=== PATIENT | male | born 1990 | race Caucasian/White ===

== ENCOUNTER 2020-02-20 14:39 | Inpatient (IN) | payer BC, SELFPAY ==
[2020-02-20] VITALS (10 sets, daily range): BP systolic 166–207; BP diastolic 113–128; PULSE 89–107; RESP 11–21; TEMP 36.6; O2SAT 95–99; BMI 19.1
[2020-02-20] MEDS: ONDANSETRON 4 MG/2 ML INJ IV (15:38)
[2020-02-20] MEDS: SODIUM CHLORIDE 0.9% 1,000 ML 1000 ML IV (15:38)
[2020-02-20 15:39] LABS: Add Manual Diff / Slide Review NO; Basophils Absolute Auto 100 /uL (0-100); Basophils Percent Auto 0.8 % (0-2); Eosinophils Absolute Auto 400 /uL (0-450); Eosinophils Percent Auto 5.6 % (2-4); Hematocrit 28.4 % (41-53); Hemoglobin 9.5 g/dL (13.5-17.5); Lymphocytes Absolute Auto 1600 /uL (1100-4500); Lymphocytes Percent Auto 23.6 % (25-40); Mean Corpuscular HGB Conc 33.6 % (30-36); Mean Corpuscular Hemoglobin 27.6 PG (26-34); Mean Corpuscular Volume 82.1 fL (80-100); Monocytes Absolute Auto 400 /uL (0-900); Neutrophils Absolute Auto 4300 /uL (1500-7000); Platelet Count 283 X10^3/uL (150-400); Red Blood Cell Count 3.45 X10^6/uL (4.5-5.9); White Blood Cell Count 6.7 X10^3/uL (4.5-11.0)
[2020-02-20 15:51] LABS: Alanine Aminotransferase 33 IU/L (<50); Albumin 3.3 g/dL (3.5-5.0); Albumin Globulin Ratio 1.3 (1.0-2.8); Alkaline Phosphatase 83 U/L (38-126); Aspartate Aminotransferase 41 IU/L (17-59); Bilirubin Total 0.6 mg/dL (0.2-1.3); Blood Urea Nitrogen 32 mg/dL (9-20); Calcium 8.3 mg/dL (8.4-10.2); Carbon Dioxide 26 mmol/L (22-32); Chloride 110 mmol/L (98-107); Estimated Glomerular Filt Rate 42.3 mL/min (>60); Globulin 2.6 g/dL (1.7-4.1); Glucose 103 mg/dL (70-100); HEMOLYSIS < 15 (0-50); Lipase 60 U/L (23-300); Potassium 4.3 mmol/L (3.4-5.1); Sodium 137 mmol/L (137-145); Total Protein 5.9 g/dL (6.3-8.2)
[2020-02-20 15:55] LABS: Appearance Urine UA CLEAR; Bacteria Urine None Seen; Bilirubin Urine UA NEGATIVE (NEGATIVE); Color Urine UA YELLOW; Glucose Urine UA 1+ g/dL (Negative); Ketones Urine UA NEGATIVE (NEGATIVE); Leukocyte Esterase Urine UA NEGATIVE (NEGATIVE); Nitrite Urine UA NEGATIVE (Negative); Occult Blood Urine UA 3+ (Negative); Protein Urine UA 3+ (Negative); Specific Gravity Urine UA 1.025 (1.000-1.035); Urobilinogen Urine UA 0.2 E.U./dL (0.2); pH Urine UA 5.5 (4.5-8.0)
[2020-02-20 16:03] LABS: Amorphous Sediment Urine 1+; Culture Indicated Urine Cult Not Indicated; Hyaline Casts Urine 1-5/LPF; RBC Urine 5-10/HPF (0-5/HPF); Squamous Epithelial Cell Urine 0-1 /HPF (0-5/HPF); WBC Urine 0-1/HPF (0-5/HPF)
--- NOTE | 2020-02-20 16:54 | ED_ITS ---
HPI - Nausea/Vomiting/Diarrhea <Tory Briscoe PA-C - Last Filed: 02/21/20 22:35> General Chief complaint: Nausea/Vomiting/Diarrhea Stated complaint: vomiting,diarrhea, nausea Time Seen by Provider: 02/20/20 15:17 Source: patient Mode of arrival: Ambulatory Limitations: no limitations History of Present Illness HPI Narrative: There year old with history of hyperkalemia, neurogenic bladder, neuropathy of feet, type 1 diabetes-controlled with insulin pump, presents to the emergency department complaining of nausea and vomiting since Monday, 5 days ago and diarrhea that began last night. He has had a reduced ability to take oral food over this time he did eat yesterday some homemade chicken soup today he has only been able to keep down crackers and a small amount of tony tea. He was actually feeling pretty good yesterday however yesterday evening he started feeling bad again and started having diarrhea, he has been having diarrhea this morning as well 5-6 episodes today he has vomited about 3 times today. He has some abdominal discomfort but notes he is not sure how well he is able to identify pain in his belly due to his neuropathy. He endorses chronic issues with his GI system notes that before Covid he was referred to have a ?double scope however this did not happened yet. He also notes that he has been on a special elimination diet recently and he is just starting to come off of this, he thinks he had ?an allergic reaction to something I ate on Monday because Monday evening he noted that his lower legs were swollen in his ankles and this worsened and went up to almost his knees. He does remember having this problem before but it has always been very mild and early this week it was very severe, it is still definitely worse than his usual, he did take Benadryl every day for the last 3 days. 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 In the last 2 weeks his left eye has begun giving him trouble, with blurry vision in both eyes and dark spots in his vision that appear and then blew mental larger spots. He also notes that his glucometer has been reading higher at times he has seen some spikes over the last 4 days while he has been having symptoms that last a little longer than usual, up to 250 once. Normally his blood sugar is very well controlled with the pump. He has been assessed for his neurogenic bladder and states that usually when he pees he has about 200 or 300 remaining ?I have a very big bladder?. Patient notes he ?always has a fast heart rate?. He used to take blood pressure medicine, took lisinopril this spring but ended up being hospitalized for hyperkalemia after 3 days of therapy, tried amlodipine for over a month but it did absolutely nothing to reduce his blood pressure and he stopped taking early this summer. He denies any chest pain, flank pain, dysuria, headache, sore throat, dizziness, medication changes or any other symptoms. MD complaint: nausea, vomiting, diarrhea, abdominal pain and other (Lower extr emity edema) Onset (ago): day(s) (4) Description of Vomiting: watery Description of Diarrhea: watery Associated Abdominal Pain: Yes (Mild) Location of pain: diffuse and RLQ Severity scale (1-10): 2 Quality: cramping and aching Pain Consistency: constant Relieving factors: none Exacerbating factors: none Associated symptoms: nausea/vomiting and other (Lower extremity swelling) Related Data Home Medications Medication Instructions Recorded Confirmed insulin aspart U-100 [Novolog 1 unit CONTINUOUS IV INFUSION CONT 02/21/20 02/21/20 U-100 Insulin aspart] Previous Rx's Medication Instructions Recorded amlodipine 5 mg PO DAILY #30 tab 02/23/20 atorvastatin 10 mg PO BEDTIME #30 tab 02/23/20 losartan 25 mg PO BID #30 tab 02/23/20 Allergies Allergy/AdvReac Type Severity Reaction Status Date / Time Sulfa (Sulfonamide Allergy Verified 02/20/20 14:53 Antibiotics) Review of Systems <Tory Briscoe PA-C - Last Filed: 02/21/20 22:35> Review of Systems Narrative: GENERAL: Denies chills, fatigue, malaise, fever, sweats. HEENT: Denies sinus pain, ear pain, sore throat, difficulty swallowing, dizziness, positive for intermittent blurry vision vision, tiny dark spots in hi s vision that ?newsome? new in his left eye over the last 2 weeks, worsening in both eyes over the last 2 weeks. RESPIRATORY: Denies dyspnea, cough, wheezing, hemoptysis, sputum. CARDIOVASCULAR: Denies chest pain, palpitations, orthopnea, positive for lower extremity edema since Monday, GASTROINTESTINAL: Positive for nausea, vomiting, abdominal pain, diarrhea, negative for constipation, melena. : Denies dysuria, frequency, incontinence, hematuria, urinary retention. MUSCULOSKELETAL: denies weakness, joint pain, or bony pain SKIN: Denies rash, skin lesions, or other NEUROLOGIC: Denies weakness, headache, numbness, change in speech, confusion, seizures, incoordination, positive for neurogenic bladder, neuropathy of his feet. PSYCHIATRIC: No concerning psychosocial issues. 12 point review of systems is negative except for those stated above Patient History <Tory Briscoe PA-C - Last Filed: 02/21/20 22:35> Medical History (Updated 02/21/20 @ 04:32 by LAVAREZ Davis) Hypertension (Acute) Nephropathy (Acute) Neuropathy (Acute) Retinopathy (Acute) Type 1 diabetes mellitus (Acute) Surgical History (Updated 02/21/20 @ 04:32 by ALVAREZ aDvis) No history of previous surgery (Acute) Social History household members: family Smoking Status: Never smoker Smoking Status: Never smoker alcohol intake frequency: holidays/special occasions only Substance Use Type: does not use Exam <Tory Briscoe PA-C - Last Filed: 02/21/20 22:35> Narrative Exam Narrative: GENERAL: 29 year old patient appears stated age. Well-nourished, well-developed patient, in mild distress. HEAD: Atraumatic. Normocephalic. EYES: Pupils equal round and poorly reactive. Extraocular motions intact. No scleral icterus. No injection or drainage. Funduscopic exam reveals multiple bilateral flame hemorrhages ENT: Nose without bleeding, purulent drainage. Throat without erythema, tonsillar hypertrophy or exudate. Airway patent. NECK: Trachea midline. Non tender CARDIOVASCULAR: Regular rate and rhythm without murmurs, gallops, or rubs. RESPIRATORY: Clear to auscultation. Breath sounds equal bilaterally. No wheezes, rales, or rhonchi. GASTROINTESTINAL: Insulin pump port present on the left lower abdomen, 2nd port present on the right lower abdomen. Abdomen soft, there is moderate tenderness over the right lower quadrant in the area of McBurney's point, there is also slight tenderness in the left lower quadrant, nondistended. EXTREMITIES: There is bilateral edema of the feet ankles and extending up to the mid heredia, 1+ pitting edema, no joint tenderness. Bilaterally on the lateral ball of the foot there is small callus present approximately 1 cm in size more notable on the right, sensation in the feet is reduced bilaterally. BACK: Nontender without deformity or crepitance. No flank tenderness. NEURO: AOx3. SKIN: No rash or erythema of visible areas Initial Vital Signs Initial Vital Signs: Vital Signs Temperature 97.8 F 02/20/20 14:53 Pulse Rate 107 H 02/20/20 14:53 Respiratory Rate 19 02/20/20 14:53 Blood Pressure 166/113 H 02/20/20 14:53 Pulse Oximetry 99 02/20/20 14:53 <Khanh Russ MD - Last Filed: 02/24/20 13:33> Initial Vital Signs Initial Vital Signs: Vital Signs Temperature 97.8 F 02/20/20 14:53 Pulse Rate 107 H 02/20/20 14:53 Respiratory Rate 19 02/20/20 14:53 Blood Pressure 166/113 H 02/20/20 14:53 Pulse Oximetry 99 02/20/20 14:53 Scores <Tory Briscoe PA-C - Last Filed: 02/21/20 22:35> GCS [place] coma scale eye opening: Spontaneous [place] coma scale verbal response: Orientated [place] coma scale motor response: Obey commands [place] coma scale total score: 15 Course <Tory Briscoe PA-C - Last Filed: 02/21/20 22:35> Course Course Narrative: Given the patient's neurogenic bladder, I do not know to what degree he is able to identify pain that is different or new in his abdomen, he does have right lower quadrant tenderness in association of nausea vomiting and diarrhea, did elect to do CT scan. Patient did have an elevated BNP, combined with the lower extremity edema pitting this is consistent with likely CHF exacerbation, discussed this with the attending physician and we did initiate a low-dose of Lasix as the patient has neurogenic bladder, tendency to retain fluid in his bladder. CT scan did not show the entire appendix, unable to definitively rule out appendicitis, there was trace free fluid in the pelvis and exam is read as possibly secondary to generalized inflammatory process such as gastroenteritis. Also note on his labs that his H&H is low, not critically. He also has blood in his urine but no other evidence of a urinary tract infection. 18:52 Discussed this patient with ED attending Dr. Mahajan and planned to have him work with his primary care to get his blood pressure better controlled, and sent him out on Lasix for his lower extremity edema. I have fairly low suspicion that his nausea vomiting and diarrhea has been caused by appendicitis given that multiple normal appearing segments of the appendix were seen and his GI symptoms have not worsened at all in the emergency department today, exam is also nonspecific for appendicitis, however his probable CHF is concerning. His kidney function is also notably poor. He is notably well controlled comparati vely in terms of his diabetes at this time compared to his previous poor control reportedly. 20:28 Discussed in detail the different problems going on with the patient and the plan to discharge him, during our discussion he brought up the fact that he has eye issues and these began in October he was evaluated for them and was supposed to be getting injections but has not been able to afford them due to not currently being employed and not having insurance. He reports that in the last 2 weeks his left eye began having eye issues as well and his vision has been worsening over the last 2 weeks with increasing blurry vision of both eyes, he frequently has small pinpoint dark spots in his vision that ?newsome?. Did perform a funduscopic exam and he does have flame hemorrhages present. Discussed this patient with new attending Dr. Russ and given that he is currently having end-organ damage and this is new and worsening in the last few weeks in the setting of poorly controlled blood pressure we do feel it is appropriate to transfer him to a facility that has Ophthalmology and Nephrology as well as cardiology so that he can be further evaluated and his blood pressure can be controlled, he may also warrant a echo given his probable CHF. 21:46 Still waiting to hear back from the hospitalist at [facility] for possible transfer. Updated the patient. He is doing well, ate some food and has some additional water still feeling okay without nausea. 22:50 [facility] no longer has a bed available. [address] does not have any beds available. Trying [facility] [address] Patino at [facility] who stated that there is no hadoop java developer available there and he feels the patient would be better served at a facility where he can be in the ICU and have accessed Ophthalmology. We are contacting [facility]. I have given report and handing off the patient to Dr. king occur remains on shift in the emergency department. 12:24 Spoke with Trinity Morgan RN at [facility] and gave report regarding this patient, the advised that when the physician called back they will likely be seeking with Dr. Russ--care handed off to Dr. Russ 12:38 Orders Ordered: Discontinued Medications Acetaminophen (Tylenol) 650 mg PO Q6HR PRN PRN Reason: Fever/Mild Pain (1-3) Last Admin: 02/22/20 00:23 Dose: 650 mg Documented by: MARIA LUZ Admin: 02/21/20 16:26 Dose: 650 mg Documented by: CATRACHO Enoxaparin Sodium (Lovenox) 40 mg SUBCUT DAILY [facility] Last Admin: 02/23/20 09:04 Dose: 40 mg Documented by: Admin: 02/22/20 09:39 Dose: 40 mg Documented by: Admin: 02/21/20 08:50 Dose: 40 mg Documented by: QUINCY Furosemide (Lasix) 20 mg IV NOW ONE Stop: 02/20/20 17:46 Last Admin: 02/20/20 17:49 Dose: 20 mg Documented by: MAURICIO Hydralazine HCl (Apresoline) 10 mg IV Q6HR PRN PRN Reason: Hypertension Last Admin: 02/22/20 06:10 Dose: 10 mg Documented by: MARIA LUZ Admin: 02/21/20 19:31 Dose: 10 mg Documented by: CATRACHO Sodium Chloride (Normal Saline 0.9%) 1,000 mls @ 1,000 mls/hr IV BOLUS ONE Stop: 02/20/20 16:21 Last Infusion: 02/20/20 16:51 Dose: 1,000 mls/hr Documented by: Admin: 02/20/20 15:38 Dose: 1,000 mls/hr Documented by: MAURICIO Lactated Ringer's (Lactated Ringers) 1,000 mls @ 50 mls/hr IV CONT JENNIE Last Admin: 02/22/20 19:54 Dose: 50 mls/hr Documented by: Infusion: 02/22/20 19:54 Dose: 50 mls/hr Documented by: Admin: 02/22/20 00:34 Dose: 50 mls/hr Documented by: MARIA LUZ Infusion: 02/22/20 00:33 Dose: 50 mls/hr Documented by: MARIA LUZ Admin: 02/21/20 04:33 Dose: 50 mls/hr Documented by: JUAN MIGUEL Insulin Aspart (Novolog) 1 unit SUBCUT CONT ONE Stop: 02/21/20 04:14 Last Admin: 02/21/20 04:32 Dose: Not Given Documented by: JUAN MIGUEL Labetalol HCl (Trandate) 10 mg IV NOW ONE Stop: 02/21/20 02:19 Last Admin: 02/21/20 02:27 Dose: 10 mg Documented by: MOAPO Labetalol HCl (Trandate) 10 mg IV Q4HR PRN PRN Reason: Hypertension Last Admin: 02/23/20 05:53 Dose: 10 mg Documented by: MARIA LUZ Admin: 02/21/20 17:18 Dose: 10 mg Documented by: Admin: 02/21/20 13:31 Dose: 10 mg Documented by: Admin: 02/21/20 06:22 Dose: 10 mg Documented by: JUAN MIGUEL Losartan Potassium (Cozaar) 25 mg PO NOW ONE Stop: 02/21/20 04:51 Last Admin: 02/21/20 05:07 Dose: 25 mg Documented by: JUAN MIGUEL Losartan Potassium (Cozaar) 25 mg PO BID [facility] Last Admin: 02/23/20 09:03 Dose: 25 mg Documented by: Admin: 02/22/20 21:17 Dose: 25 mg Documented by: Admin: 02/22/20 09:39 Dose: 25 mg Documented by: MELANIA Metoclopramide HCl (Reglan) 10 mg IV Q6HR PRN PRN Reason: Nausea And Vomiting Last Admin: 02/22/20 19:54 Dose: 10 mg Documented by: Admin: 02/22/20 11:38 Dose: 10 mg Documented by: MELANIA Naloxone HCl (Narcan) 0.2 mg IV Q2MIN PRN PRN Reason: Opiate Reversal Nitroglycerin (Nitro-Bid) 1 inch TOP NOW ONE Stop: 02/21/20 02:10 Last Admin: 02/21/20 02:12 Dose: 1 inch Documented by: MADELEINE Ondansetron HCl (Zofran) 4 mg IV NOW ONE Stop: 02/20/20 15:23 Last Admin: 02/20/20 15:38 Dose: 4 mg Documented by: MAURICIO Ondansetron HCl (Zofran) 4 mg IV Q6HR PRN PRN Reason: Nausea And Vomiting Last Admin: 02/22/20 06:11 Dose: 4 mg Documented by: MARIA LUZ Admin: 02/22/20 00:34 Dose: 4 mg Documented by: MARIA LUZ Admin: 02/21/20 16:26 Dose: 4 mg Documented by: CATRACHO Oxycodone HCl (Percolone) 5 mg PO Q4HR PRN PRN Reason: Pain, Moderate (4-6) Pantoprazole Sodium (Protonix) 40 mg IV DAILY JENNIE Last Admin: 02/22/20 09:39 Dose: 40 mg Documented by: Admin: 02/21/20 08:50 Dose: 40 mg Documented by: QUINCY Vital Signs Vital signs: Vital Signs - 8 hr 02/20/20 19:12 02/20/20 19:13 02/20/20 21:40 Pulse Rate 100 H Respiratory Rate 21 Blood Pressure 187/126 H 187/126 H Pulse Oximetry 02/20/20 21:41 02/20/20 22:00 02/20/20 22:30 Pulse Rate 101 H 89 95 H Respiratory Rate 11 L 17 Blood Pressure 166/114 H 197/124 H 200/128 H Pulse Oximetry 99 99 02/20/20 23:00 02/20/20 23:30 02/21/20 00:00 Pulse Rate 91 H 90 94 H Respiratory Rate 17 17 13 Blood Pressure 189/128 H 177/118 H 181/121 H Pulse Oximetry 95 98 99 02/21/20 00:30 02/21/20 01:00 02/21/20 01:30 Pulse Rate 91 H 87 90 Respiratory Rate 15 14 15 Blood Pressure 182/116 H 172/110 H 173/116 H Pulse Oximetry 99 99 99 02/21/20 02:12 Pulse Rate 86 Respiratory Rate Blood Pressure 174/115 H Pulse Oximetry <Khanh Brennick, MD - Last Filed: 02/24/20 13:33> Course Course Narrative: Time 2:07 a.m.. Spoke with the Sydnee mendez hospitalist. At this time unable to receive patient. I have spoken with Other hospitals local ER boarding or have no beds. Including [facility]. [facility]. [facility]. [facility] also no beds Orders Ordered: Discontinued Medications Acetaminophen (Tylenol) 650 mg PO Q6HR PRN PRN Reason: Fever/Mild Pain (1-3) Last Admin: 02/22/20 00:23 Dose: 650 mg Documented by: MARIA LUZ Admin: 02/21/20 16:26 Dose: 650 mg Documented by: CATRACHO Enoxaparin Sodium (Lovenox) 40 mg SUBCUT DAILY JENNIE Last Admin: 02/23/20 09:04 Dose: 40 mg Documented by: Admin: 02/22/20 09:39 Dose: 40 mg Documented by: Admin: 02/21/20 08:50 Dose: 40 mg Documented by: QUINCY Furosemide (Lasix) 20 mg IV NOW ONE Stop: 02/20/20 17:46 Last Admin: 02/20/20 17:49 Dose: 20 mg Documented by: MAURICIO Hydralazine HCl (Apresoline) 10 mg IV Q6HR PRN PRN Reason: Hypertension Last Admin: 02/22/20 06:10 Dose: 10 mg Documented by: MARIA LUZ Admin: 02/21/20 19:31 Dose: 10 mg Documented by: CATRACHO Sodium Chloride (Normal Saline 0.9%) 1,000 mls @ 1,000 mls/hr IV BOLUS ONE Stop: 02/20/20 16:21 Last Infusion: 02/20/20 16:51 Dose: 1,000 mls/hr Documented by: Admin: 02/20/20 15:38 Dose: 1,000 mls/hr Documented by: MAURICIO Lactated Ringer's (Lactated Ringers) 1,000 mls @ 50 mls/hr IV CONT JENNIE Last Admin: 02/22/20 19:54 Dose: 50 mls/hr Documented by: Infusion: 02/22/20 19:54 Dose: 50 mls/hr Documented by: Admin: 02/22/20 00:34 Dose: 50 mls/hr Documented by: MARIA LUZ Infusion: 02/22/20 00:33 Dose: 50 mls/hr Documented by: MARIA LUZ Admin: 02/21/20 04:33 Dose: 50 mls/hr Documented by: JUAN MIGUEL Insulin Aspart (Novolog) 1 unit SUBCUT CONT ONE Stop: 02/21/20 04:14 Last Admin: 02/21/20 04:32 Dose: Not Given Documented by: JUAN MIGUEL Labetalol HCl (Trandate) 10 mg IV NOW ONE Stop: 02/21/20 02:19 Last Admin: 02/21/20 02:27 Dose: 10 mg Documented by: TRIPP Labetalol HCl (Trandate) 10 mg IV Q4HR PRN PRN Reason: Hypertension Last Admin: 02/23/20 05:53 Dose: 10 mg Documented by: MARIA LUZ Admin: 02/21/20 17:18 Dose: 10 mg Documented by: Admin: 02/21/20 13:31 Dose: 10 mg Documented by: Admin: 02/21/20 06:22 Dose: 10 mg Documented by: JUAN MIGUEL Losartan Potassium (Cozaar) 25 mg PO NOW ONE Stop: 02/21/20 04:51 Last Admin: 02/21/20 05:07 Dose: 25 mg Documented by: JUAN MIGUEL Losartan Potassium (Cozaar) 25 mg PO BID JENNIE Last Admin: 02/23/20 09:03 Dose: 25 mg Documented by: Admin: 02/22/20 21:17 Dose: 25 mg Documented by: Admin: 02/22/20 09:39 Dose: 25 mg Documented by: MELANIA Metoclopramide HCl (Reglan) 10 mg IV Q6HR PRN PRN Reason: Nausea And Vomiting Last Admin: 02/22/20 19:54 Dose: 10 mg Documented by: Admin: 02/22/20 11:38 Dose: 10 mg Documented by: MELANIA Naloxone HCl (Narcan) 0.2 mg IV Q2MIN PRN PRN Reason: Opiate Reversal Nitroglycerin (Nitro-Bid) 1 inch TOP NOW ONE Stop: 02/21/20 02:10 Last Admin: 02/21/20 02:12 Dose: 1 inch Documented by: MADELEINE Ondansetron HCl (Zofran) 4 mg IV NOW ONE Stop: 02/20/20 15:23 Last Admin: 02/20/20 15:38 Dose: 4 mg Documented by: MAURICIO Ondansetron HCl (Zofran) 4 mg IV Q6HR PRN PRN Reason: Nausea And Vomiting Last Admin: 02/22/20 06:11 Dose: 4 mg Documented by: MARIA LUZ Admin: 02/22/20 00:34 Dose: 4 mg Documented by: MARIA LUZ Admin: 02/21/20 16:26 Dose: 4 mg Documented by: CATRACHO Oxycodone HCl (Percolone) 5 mg PO Q4HR PRN PRN Reason: Pain, Moderate (4-6) Pantoprazole Sodium (Protonix) 40 mg IV DAILY JENNIE Last Admin: 02/22/20 09:39 Dose: 40 mg Documented by: Admin: 02/21/20 08:50 Dose: 40 mg Documented by: QUINCY Reevaluation(s) Reevaluation #1: Patient resting comfortably no distress Time: 02:19 Consultations Consultation #1: Spoke with hospitalistHowie, will admit. Instructed to give labetalol 10 mg IV here now. Time: 02:19 Vital Signs Vital signs: Vital Signs - 8 hr 02/20/20 19:12 02/20/20 19:13 02/20/20 21:40 Pulse Rate 100 H Respiratory Rate 21 Blood Pressure 187/126 H 187/126 H Pulse Oximetry 02/20/20 21:41 02/20/20 22:00 02/20/20 22:30 Pulse Rate 101 H 89 95 H Respiratory Rate 11 L 17 Blood Pressure 166/114 H 197/124 H 200/128 H Pulse Oximetry 99 99 02/20/20 23:00 02/20/20 23:30 02/21/20 00:00 Pulse Rate 91 H 90 94 H Respiratory Rate 17 17 13 Blood Pressure 189/128 H 177/118 H 181/121 H Pulse Oximetry 95 98 99 02/21/20 00:30 02/21/20 01:00 02/21/20 01:30 Pulse Rate 91 H 87 90 Respiratory Rate 15 14 15 Blood Pressure 182/116 H 172/110 H 173/116 H Pulse Oximetry 99 99 99 02/21/20 02:12 Pulse Rate 86 Respiratory Rate Blood Pressure 174/115 H Pulse Oximetry MDM - Nausea/Vomiting/Diarrhea <Tory Briscoe PA-C - Last Filed: 02/21/20 22:35> Differential Diagnosis Differential diagnosis: Likely gastroenteritis and other (hypertensive urgency, hypertensive emergency, CHF, LE edema, retinopathy, nephropathy, appendicitis) Medical Records Attestation: I reviewed the patient's medical records. Lab Data Attestation: I reviewed the patient's lab results. Result diagrams: 02/23/20 05:25 02/23/20 05:25 Labs: Lab Results 02/20/20 02/20/20 02/20/20 Range/Units 15:34 15:34 15:42 WBC 6.7 (4.5-11.0) X10^3/uL RBC 3.45 L (4.5-5.9) X10^6/uL Hgb 9.5 L (13.5-17.5) g/dL Hct 28.4 L (41-53) % MCV 82.1 (80-100) fL MCH 27.6 (26-34) PG MCHC 33.6 (30-36) % RDW 14.0 (11.6-14.8) % Plt Count 283 (150-400) X10^3/uL Neut % (Auto) 64.0 (50-75) % Lymph % (Auto) 23.6 L (25-40) % [place] % (Auto) 6.0 (3-14) % Eos % (Auto) 5.6 H (2-4) % Baso % (Auto) 0.8 (0-2) % Neut # (Auto) 4300 (2565-3554) /uL Lymph # (Auto) 1600 (8369-4419) /uL [place] # (Auto) 400 (0-900) /uL Eos # (Auto) 400 (0-450) /uL Baso # (Auto) 100 (0-100) /uL Sodium 137 (137-145) mmol/L Potassium 4.3 (3.4-5.1) mmol/L Chloride 110 H (98-107) mmol/L Carbon Dioxide 26 (22-32) mmol/L BUN 32 H (9-20) mg/dL Creatinine 1.88 H (0.66-1.25) mg/dL Estimated GFR 42.3 L (>60) mL/min BUN/Creatinine Ratio 17.0 (6-22) Glucose 103 H (70-100) mg/dL Calcium 8.3 L (8.4-10.2) mg/dL Total Bilirubin 0.6 (0.2-1.3) mg/dL AST 41 (17-59) IU/L ALT 33 (<50) IU/L Alkaline Phosphatase 83 (38-126) U/L Total Creatine Kinase (55-170) U/L CK-MB (CK-2) (<2.37) ng/mL CK-MB (CK-2) Rel Index (1.5-5.0) % Troponin I (0.01-0.034) ng/mL NT-Pro-B Natriuret Pep (<125) pg/mL Total Protein 5.9 L (6.3-8.2) g/dL Albumin 3.3 L (3.5-5.0) g/dL Globulin 2.6 (1.7-4.1) g/dL Albumin/Globulin Ratio 1.3 (1.0-2.8) Lipase 60 (23-300) U/L Urine Color Yellow Urine Appearance Clear Urine pH 5.5 (4.5-8.0) Ur Specific [place] 1.025 (1.000-1.035) Urine Protein 3+ H (Negative) Urine Glucose (UA) 1+ H (Negative) g/dL Urine Ketones Negative (NEGATIVE) Urine Occult Blood 3+ H (Negative) Urine Nitrate Negative (Negative) Urine Bilirubin Negative (NEGATIVE) Urine Urobilinogen 0.2 (0.2) E.U./dL Ur Leukocyte Esterase Negative (NEGATIVE) Urine RBC 5-10/hpf H (0-5/HPF) Urine WBC 0-1/hpf (0-5/HPF) Ur Squamous Epith Cells 0-1 /hpf (0-5/HPF) Amorphous Sediment 1+ Urine Bacteria None seen (None) Hyaline Casts 1-5/lpf (None) Ur Culture Indicated? Cult not indicated COVID-19 PCR (Negative) 02/20/20 02/20/20 02/20/20 Range/Units 16:34 22:06 23:37 WBC (4.5-11.0) X10^3/uL RBC (4.5-5.9) X10^6/uL Hgb (13.5-17.5) g/dL Hct (41-53) % MCV (80-100) fL MCH (26-34) PG MCHC (30-36) % RDW (11.6-14.8) % Plt Count (150-400) X10^3/uL Neut % (Auto) (50-75) % Lymph % (Auto) (25-40) % [place] % (Auto) (3-14) % Eos % (Auto) (2-4) % Baso % (Auto) (0-2) % Neut # (Auto) (4244-0407) /uL Lymph # (Auto) (6980-5629) /uL [place] # (Auto) (0-900) /uL Eos # (Auto) (0-450) /uL Baso # (Auto) (0-100) /uL Sodium (137-145) mmol/L Potassium (3.4-5.1) mmol/L Chloride (98-107) mmol/L Carbon Dioxide (22-32) mmol/L BUN (9-20) mg/dL Creatinine (0.66-1.25) mg/dL Estimated GFR (>60) mL/min BUN/Creatinine Ratio (6-22) Glucose (70-100) mg/dL Calcium (8.4-10.2) mg/dL Total Bilirubin (0.2-1.3) mg/dL AST (17-59) IU/L ALT (<50) IU/L Alkaline Phosphatase (38-126) U/L Total Creatine Kinase 296 H (55-170) U/L CK-MB (CK-2) 3.87 H (<2.37) ng/mL CK-MB (CK-2) Rel Index 1.3 L (1.5-5.0) % Troponin I 0.023 (0.01-0.034) ng/mL NT-Pro-B Natriuret Pep 1010 H (<125) pg/mL Total Protein (6.3-8.2) g/dL Albumin (3.5-5.0) g/dL Globulin (1.7-4.1) g/dL Albumin/Globulin Ratio (1.0-2.8) Lipase (23-300) U/L Urine Color Urine Appearance Urine pH (4.5-8.0) Ur Specific [place] (1.000-1.035) Urine Protein (Negative) Urine Glucose (UA) (Negative) g/dL Urine Ketones (NEGATIVE) Urine Occult Blood (Negative) Urine Nitrate (Negative) Urine Bilirubin (NEGATIVE) Urine Urobilinogen (0.2) E.U./dL Ur Leukocyte Esterase (NEGATIVE) Urine RBC (0-5/HPF) Urine WBC (0-5/HPF) Ur Squamous Epith Cells (0-5/HPF) Amorphous Sediment Urine Bacteria (None) Hyaline Casts (None) Ur Culture Indicated? COVID-19 PCR Negative (Negative) Imaging Data Chest x-ray: Attestation: I personally reviewed and interpreted this imaging study as follows: Radiologist's Impression: [address] [address] XRay Report Signed Patient: Adonis Warner#: [id number] : 1990Acct:[id number] Age/Sex: 29 / MDate of Service: 02/20/20 Loc: ED Accession Number: [id number] Procedure: XR chest 1V Ordering Provider: Tory Briscoe P.A-C PROCEDURE: XR CHEST 1V INDICATIONS: suspect CHF TECHNIQUE: One view of the chest was acquired. COMPARISON: [facility] , CHEST 2 VIEW, 05/27/2012, 7:22. FINDINGS: Surgical changes and devices: None. Lungs and pleura: Lungs are clear. No radiographic evidence of pulmonary edema. No pleural effusions or pneumothorax. Mediastinum: Mediastinal contours appear normal. Heart size is normal. Bones and chest wall: No suspicious bony lesions. Overlying soft tissues appear unremarkable. IMPRESSION: 1. No acute cardiopulmonary disease. Dictated by: Martin Hall M.D. on 02/20/2020 at 17:20 Approved by: Martin Hall M.D. on 02/20/2020 at 17:21 CT scan - abdomen/pelvis: Attestation: I personally reviewed and interpreted this imaging study as follows: Radiologist's Impression: [address] [address] [address] Scan Report Signed Patient: Adonis Warner#: [id number] : 1990Acct:[id number] Age/Sex: 29 / MDate of Service: 02/20/20 Loc: ED Accession Number: [id number] Procedure: CT abdomen pelvis w con Ordering Provider: Tory Briscoe P.A-C PROCEDURE: CT ABDOMEN PELVIS W CON INDICATIONS: N/V/D RLQ abd pain TECHNIQUE: After the administration of intravenous contrast, 5 mm thick sections acquired from the diaphragm to the symphysis. 5 mm coronal and sagittal reformats were acquired. For radiation dose reduction, the following was used: automated exposure control, adjustment of mA and/or kV according to patient size. COMPARISON: None. FINDINGS: Image quality: Good, but decreased due to lack of oral contrast and full urinary bladder.. ABDOMEN: Lung bases: Lung bases are clear. Heart size is normal. Solid organs: Liver is normal in size and enhancement. Gallbladder is unremarkable . Biliary system is non dilated. Pancreas enhances normally. Spleen is normal in size and enhancement. No adrenal nodules. Kidneys demonstrate normal size and enhancement, without hydronephrosis. Peritoneum and bowel: The entire appendix is not convincingly seen, however short segments of air-filled normal caliber appendix are occasionally imaged. There is generalized haziness in the mesentery and trace amount of fluid in the pelvis. Bowel loops demonstrate normal wall thickness and caliber. No free fluid or air. Nodes and vessels: No retroperitoneal or mesenteric adenopathy by size criteria. Aorta and inferior vena cava are normal in size. Miscellaneous: No ventral hernias. PELVIS: Genitourinary: Urinary bladder is distended and the wall is mildly diffusely thickened.. Miscellaneous: No inguinal hernias or adenopathy. Bones: No suspicious bony lesions. No vertebral body compression fractures. IMPRESSION: 1. The exam is equivocal for acute appendicitis given the entire appendix cannot be identified and there is a trace amount of fluid in the pelvis. This may be secondary to a generalized inflammatory process such as gastroenteritis. Acute appendicitis cannot be excluded. 2. Mild diffuse thickening of the urinary bladder wall. Consider cystitis. Dictated by: Suzanne Ruano M.D. on 02/20/2020 at 18:12 Approved by: Suzanne Ruano M.D. on 02/20/2020 at 18:16 ECG Data Attestation: I personally reviewed and interpreted this ECG as follows: Prior ECG tracings: not available for review Interpretation: Ventricular rate 95, p.r. interval 138 QRS 84 QT 354 P axis 62 R axis 64 T axis 65 normal sinus rhythm normal appearing EKG. MDM Narrative Medical decision making narrative: 29-year-old male, insulin-dependent diabetic with chronic hypertension on insulin pump presents to the emergency department complaining of nausea vomiting diarrhea for 4 days as well as bilateral lower extremity swelling and vision changes worsening over the last 2 weeks most notab ly newly involving the left eye with blurred vision and dark spots and blooms in both eyes. Had plan to discharge the patient however information regarding his vision changes was late coming. Patient had a notably elevated blood pressure during his emergency department stay, however given his previous failure of multiple blood pressure medications, his kidney function and his previous hospitalization due to a very short course of lisinopril for severe hyperkalemia, did not elect to initiate blood pressure reduction in the emergency department, do believe his hypertension is chronic however it has recently been worsening and causing end-organ damage for him notably in his eyes, likely is also affecting his kidneys as well. Patient also has what appears to be a CHF, given his elevated BNP and bilateral lower extremity swelling. He also has anemia. Given his age and current hypertension with end- organ damage as well as his possible CHF, chest to admit this patient, work to find a facility that had ophthalmology nephrology and cardiology available. <Khanh Russ MD - Last Filed: 02/24/20 13:33> Lab Data Labs: Lab Results 02/20/20 02/20/20 02/20/20 Range/Units 15:34 15:34 15:42 WBC 6.7 (4.5-11.0) X10^3/uL RBC 3.45 L (4.5-5.9) X10^6/uL Hgb 9.5 L (13.5-17.5) g/dL Hct 28.4 L (41-53) % MCV 82.1 (80-100) fL MCH 27.6 (26-34) PG MCHC 33.6 (30-36) % RDW 14.0 (11.6-14.8) % Plt Count 283 (150-400) X10^3/uL Neut % (Auto) 64.0 (50-75) % Lymph % (Auto) 23.6 L (25-40) % [place] % (Auto) 6.0 (3-14) % Eos % (Auto) 5.6 H (2-4) % Baso % (Auto) 0.8 (0-2) % Neut # (Auto) 4300 (9074-3413) /uL Lymph # (Auto) 1600 (0942-0024) /uL [place] # (Auto) 400 (0-900) /uL Eos # (Auto) 400 (0-450) /uL Baso # (Auto) 100 (0-100) /uL Sodium 137 (137-145) mmol/L Potassium 4.3 (3.4-5.1) mmol/L Chloride 110 H (98-107) mmol/L Carbon Dioxide 26 (22-32) mmol/L BUN 32 H (9-20) mg/dL Creatinine 1.88 H (0.66-1.25) mg/dL Estimated GFR 42.3 L (>60) mL/min BUN/Creatinine Ratio 17.0 (6-22) Glucose 103 H (70-100) mg/dL Calcium 8.3 L (8.4-10.2) mg/dL Total Bilirubin 0.6 (0.2-1.3) mg/dL AST 41 (17-59) IU/L ALT 33 (<50) IU/L Alkaline Phosphatase 83 (38-126) U/L Total Creatine Kinase (55-170) U/L CK-MB (CK-2) (<2.37) ng/mL CK-MB (CK-2) Rel Index (1.5-5.0) % Troponin I (0.01-0.034) ng/mL NT-Pro-B Natriuret Pep (<125) pg/mL Total Protein 5.9 L (6.3-8.2) g/dL Albumin 3.3 L (3.5-5.0) g/dL Globulin 2.6 (1.7-4.1) g/dL Albumin/Globulin Ratio 1.3 (1.0-2.8) Lipase 60 (23-300) U/L Urine Color Yellow Urine Appearance Clear Urine pH 5.5 (4.5-8.0) Ur Specific [place] 1.025 (1.000-1.035) Urine Protein 3+ H (Negative) Urine Glucose (UA) 1+ H (Negative) g/dL Urine Ketones Negative (NEGATIVE) Urine Occult Blood 3+ H (Negative) Urine Nitrate Negative (Negative) Urine Bilirubin Negative (NEGATIVE) Urine Urobilinogen 0.2 (0.2) E.U./dL Ur Leukocyte Esterase Negative (NEGATIVE) Urine RBC 5-10/hpf H (0-5/HPF) Urine WBC 0-1/hpf (0-5/HPF) Ur Squamous Epith Cells 0-1 /hpf (0-5/HPF) Amorphous Sediment 1+ Urine Bacteria None seen (None) Hyaline Casts 1-5/lpf (None) Ur Culture Indicated? Cult not indicated COVID-19 PCR (Negative) 02/20/20 02/20/20 02/20/20 Range/Units 16:34 22:06 23:37 WBC (4.5-11.0) X10^3/uL RBC (4.5-5.9) X10^6/uL Hgb (13.5-17.5) g/dL Hct (41-53) % MCV (80-100) fL MCH (26-34) PG MCHC (30-36) % RDW (11.6-14.8) % Plt Count (150-400) X10^3/uL Neut % (Auto) (50-75) % Lymph % (Auto) (25-40) % [place] % (Auto) (3-14) % Eos % (Auto) (2-4) % Baso % (Auto) (0-2) % Neut # (Auto) (3406-6152) /uL Lymph # (Auto) (0795-6645) /uL [place] # (Auto) (0-900) /uL Eos # (Auto) (0-450) /uL Baso # (Auto) (0-100) /uL Sodium (137-145) mmol/L Potassium (3.4-5.1) mmol/L Chloride (98-107) mmol/L Carbon Dioxide (22-32) mmol/L BUN (9-20) mg/dL Creatinine (0.66-1.25) mg/dL Estimated GFR (>60) mL/min BUN/Creatinine Ratio (6-22) Glucose (70-100) mg/dL Calcium (8.4-10.2) mg/dL Total Bilirubin (0.2-1.3) mg/dL AST (17-59) IU/L ALT (<50) IU/L Alkaline Phosphatase (38-126) U/L Total Creatine Kinase 296 H (55-170) U/L CK-MB (CK-2) 3.87 H (<2.37) ng/mL CK-MB (CK-2) Rel Index 1.3 L (1.5-5.0) % Troponin I 0.023 (0.01-0.034) ng/mL NT-Pro-B Natriuret Pep 1010 H (<125) pg/mL Total Protein (6.3-8.2) g/dL Albumin (3.5-5.0) g/dL Globulin (1.7-4.1) g/dL Albumin/Globulin Ratio (1.0-2.8) Lipase (23-300) U/L Urine Color Urine Appearance Urine pH (4.5-8.0) Ur Specific [place] (1.000-1.035) Urine Protein (Negative) Urine Glucose (UA) (Negative) g/dL Urine Ketones (NEGATIVE) Urine Occult Blood (Negative) Urine Nitrate (Negative) Urine Bilirubin (NEGATIVE) Urine Urobilinogen (0.2) E.U./dL Ur Leukocyte Esterase (NEGATIVE) Urine RBC (0-5/HPF) Urine WBC (0-5/HPF) Ur Squamous Epith Cells (0-5/HPF) Amorphous Sediment Urine Bacteria (None) Hyaline Casts (None) Ur Culture Indicated? COVID-19 PCR Negative (Negative) Discharge Plan Departure Patient Disposition: Admitted as Observation Clinical Impression: Nausea vomiting and diarrhea, Bilateral edema of lower extremity, Elevated brain natriuretic peptide (BNP) level Hypertension Qualifiers: Hypertension type: unspecified Qualified Code(s): I10 - Essential (primary) hypertension Discharge Date/Time: 02/21/20 03:52 Instructions: Essential Hypertension, DI for Dehydration -- Adult, DI for High Blood Pressure, Nausea and Vomiting-Adult, Atorvastatin, Amlodipine, Losartan Additional Instructions: Thank you for letting us be part of your care in the emergency department today. The cause of your nausea vomiting and diarrhea is unclear, it is possible that you have a gastroenteritis or viral illness that has caused this, you do have some inflammation seen in your GI tract on the CT scan we did today but it is nonspecific. I have prescribed and antinausea medicine for you to help you be able to eat and drink. Your labs did show that you have anemia, it is possible that the diet you have been on recently may have influenced this I do recommend that he start taking an iron supplement or injuring that your getting plenty of protein and iron in the foods that you eat. You also had swelling of both of your lower legs, and 1 of your labs that can indicate reduced cardiac function and can cause fluid collecting your lower extremities was also elevated today, sometimes lower extremity swelling can also be caused by anemia. We gave you a medication to help your body get rid of some of this excess fluid in the emergency department but I am also prescribing this medicine for you to take as an outpatient. Because of your diabetes adding medications to her regimen can be delicate, this is white very important for you to follow-up with your primary care in the next 2 days ideally, if you are not able to get in to see her regular primary care you can go to Urgent Care, I have also included information on [facility] resources which you can call to work on accessing a new primary care provider if needed. This CT scan today showed part severe parts of your appendix but not all of your appendix, the parts that were seen were normal but because it was not fully visualized I cannot absolutely say it is not possible that you might have an early appendicitis as the cause of your nausea vomiting and diarrhea. Your blood pressure was definitely elevated in the emergency department today, I recommend that you monitor your blood pressures at home and start taking the blood pressure medication that you were previously prescribed, even if it does not lower your BP well, it will likely protect your kidneys, and I want you to talk to your primary care provider about this and work on getting you on a good medication that works well for you, is very important for people with diabetes to have a good blood pressure regimen and medication that works well to protect your kidney function. Please pay close attention to your symptoms if you do develop fevers and chills if you feel you have worsening abdominal discomfort or worsening nausea vomiting diarrhea please do not hesitate to be re-evaluated. There is no evidence of an emergent or life threatening illness at this time, but follow up with your doctor in 1-2 days is recommended nonetheless to continue to rule out serious underlying causes of your symptoms. Please call the office for an appointment. Please return to the Emergency Department for any worsening or persistent symptoms. Please take medications as directed. Referrals: [facility] [Outside] Admit Date/Time: 02/21/20 02:21 Admit Provider: Brody Hernandez
[2020-02-20 17:29] LABS: NT-proBNP (BNP-Adult 18+) 1010 pg/mL (<125)
--- NOTE | 2020-02-20 17:35 | DI.RAD.S_ITS ---
PROCEDURE: XR CHEST 1V INDICATIONS: suspect CHF TECHNIQUE: One view of the chest was acquired. COMPARISON: [facility], , CHEST 2 VIEW, 05/27/2012, 7:22. FINDINGS: Surgical changes and devices: None. Lungs and pleura: Lungs are clear. No radiographic evidence of pulmonary edema. No pleural effusions or pneumothorax. Mediastinum: Mediastinal contours appear normal. Heart size is normal. Bones and chest wall: No suspicious bony lesions. Overlying soft tissues appear unremarkable. IMPRESSION: 1. No acute cardiopulmonary disease. Dictated by: Martin Hall M.D. on 02/20/2020 at 17:20 Approved by: Martin Hall M.D. on 02/20/2020 at 17:21
[2020-02-20] MEDS: FUROSEMIDE 40 MG/4 ML VIAL 20 MG IV (17:49)
--- NOTE | 2020-02-20 22:17 | PC.NURSE ---
Pt did not bring glasses for visual acuity test
[2020-02-20 22:28] LABS: COVID19 -Nasal RAPID Negative (Negative)
[2020-02-21] VITALS (35 sets, daily range): BP systolic 110–201; BP diastolic 55–131; PULSE 82–101; RESP 12–20; TEMP 36.4–37.1; O2SAT 96–100; BMI 17.7
[2020-02-21 00:02] LABS: Creatine Kinase 296 U/L (55-170)
[2020-02-21 00:15] LABS: Troponin I 0.023 ng/mL (0.01-0.034)
[2020-02-21 00:17] LABS: CKMB % Relative Index 1.3 % (1.5-5.0); Creatine Kinase MB 3.87 ng/mL (<2.37)
[2020-02-21] MEDS: NITROGLYCERIN OINT 1 INCH/GM OINT...G. TOP (02:12)
[2020-02-21] MEDS: LABETALOL 20 MG/4 ML SYRINGE 10 MG IV ×4 (02:27→17:18)
--- NOTE | 2020-02-21 02:28 | PC.NURSE ---
nitro paste removed
--- NOTE | 2020-02-21 04:16 | PM.HP.1 ---
History of Present Illness History of Present Illness Date Patient Seen: 02/21/20 Time Patient Seen: 04:16 Chief complaint: vomiting,diarrhea, nausea Narrative: Mr. Benita Warner is a 29-year-old male with history significant for type 1 diabetes, neuropathy, retinopathy and nephropathy complications, neurogenic bladder and hypertension who presents to the emergency department for nausea vomiting and diarrhea. Patient states he has had nausea vomiting with right lower quadrant abdominal pain for 4 days that has waxed and waned improving yesterday after which he 8 and became sick again with nausea vomiting. The patient further states that he developed watery diarrhea night before last with multiple episodes of bile like watery stool today prompting him to present to the emergency department. Patient is a type 1 diabetic managed on an insulin pump for he receives his insulin from the [facility] endocrine resident clinic. Patient provides a convoluted history of recurrent episodes leg arm of facial swelling a few days ago having episode worse than ever that has since resolved. He describes visual changes for the last 2 weeks. He has previously been evaluated for neurogenic bladder and nephropathy undergoing a renal ultrasound on 09/19/2019 which shows minimal right kidney pelvocalcentesis and a normal left kidney with no evidence of hydronephrosis. The patient reports episodes of chills but denies fevers. He has had headaches city so she [place] with high blood pressure but no nasal congestion or sore throat. He denies chest pain but has had occasional palpitations. He reports no shortness of breath cough for wheezing. He has had abdominal pain, nausea, vomiting and diarrhea as noted above. Patient denies urinary symptoms and describes having a big bladder. 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 Upon arrival to the ER the patient is afebrile with a temperature 97.8?, tachycardic at 1:07 a.m. with a blood pressure 166/113 with respirations of 19 and saturation 99% on room air. While in the ER the patient had elevated blood pressure was up to 200/123. Chest x-ray finds no acute cardiopulmonary processes. He had a CT of the abdomen and pelvis is equivocal for appendicitis without full visualization, trace pelvic fluid, mild diffuse thickening of the urinary bladder. Twelve lead EKG shows a sinus rhythm ventricular rate of 95 without ectopy block or infarct. On laboratory analysis the patient has white count of 6.7 with elevated eosinophils at 5.6%. His hemoglobin is 9.5 with hematocrit of 28.6 and a platelets of 283. His electrolytes are within normal limits and has a BUN of 32 and a creatinine of 1.88. His nonfasting glucose is 103. His liver functions are all within normal limits. He has a total CK of 296, CK-MB of 3.87 with an index of 1.3%. His troponin is 0.023. His elevated proBNP at 1010. On urinalysis he has 3+ protein and 3+ blood but is negative for nitrites leukocyte esterase or WBCs. While in the ER the patient received 1 L of fluid resulting in elevation blood pressure following which he cut 20 of Lasix. Patient also had 1 in of nitropaste applied and requested labetalol 10 mg IV. The patient is admitted to the hospitalist service for hypertensive urgency and abdominal pain. Patient History Medical History (Updated 02/21/20 @ 04:32 by ALVAREZ Davis) Hypertension (Acute) Nephropathy (Acute) Neuropathy (Acute) Retinopathy (Acute) Type 1 diabetes mellitus (Acute) Surgical History (Updated 02/21/20 @ 04:32 by ALVAREZ Davis) No history of previous surgery (Acute) Family & Social History Safety & Behavioral: Feels Safe in Current Yes Environment Tobacco & Substance use: Smoking Status Never smoker alcohol intake frequency holiday/special occasion Substance Use Type does not use Meds Home Medications and Allergies Home Medications Medication Instructions Recorded Confirmed Type insulin aspart U-100 [Novolog 1 unit CONTINUOUS IV INFUSION CONT 02/21/20 02/21/20 History U-100 Insulin aspart] Allergies Allergy/AdvReac Type Severity Reaction Status Date / Time Sulfa (Sulfonamide Allergy Verified 02/20/20 14:53 Antibiotics) Review of Systems Review of Systems ROS: Yes All systems reviewed with the patient and are negative except as otherwise documented Exam Vital Signs (past 8 hours): - 02/20/20 21:40 02/20/20 21:41 02/20/20 22:00 Temperature Pulse Rate 100 H 101 H 89 Respiratory Rate 21 11 L Blood Pressure 166/114 H 197/124 H Pulse Oximetry 99 02/20/20 22:30 02/20/20 23:00 02/20/20 23:30 Temperature Pulse Rate 95 H 91 H 90 Respiratory Rate 17 17 17 Blood Pressure 200/128 H 189/128 H 177/118 H Pulse Oximetry 99 95 98 02/21/20 00:00 02/21/20 00:30 02/21/20 01:00 Temperature Pulse Rate 94 H 91 H 87 Respiratory Rate 13 15 14 Blood Pressure 181/121 H 182/116 H 172/110 H Pulse Oximetry 99 99 99 02/21/20 01:30 02/21/20 02:00 02/21/20 02:12 Temperature Pulse Rate 90 93 H 86 Respiratory Rate 15 12 Blood Pressure 173/116 H 174/115 H 174/115 H Pulse Oximetry 99 98 02/21/20 02:27 02/21/20 02:30 02/21/20 03:00 Temperature Pulse Rate 91 H 97 H Respiratory Rate 12 15 Blood Pressure 174/115 H 178/113 H 155/94 H Pulse Oximetry 98 98 02/21/20 03:13 02/21/20 03:52 02/21/20 04:00 Temperature 97.7 F Pulse Rate 98 H Respiratory Rate 16 Blood Pressure 155/94 H 164/112 H Pulse Oximetry 99 99 Oxygen Delivery Method Room Air Narrative Exam Narrative: GENERAL APPEARANCE: well developed, thin underweight male ill-appearing, in no acute distress. HEENT: Normocephalic, PERRLA, conjunctiva clear, EOMs intact without nystagmus, mucous membranes are moist and pink without lesions or exudate. NECK/THYROID: neck supple, no JVD, no carotid bruit, no thyromegaly, trachea midline. LYMPH NODES: no cervical or supraclavicular lymphadenopathy. SKIN: [place], warm and dry, no visible rashes HEART: Tachycardic rate and regular rhythm, S1-S2, no murmur, no rubs or gallops, brisk capillary refill, no peripheral edema LUNGS: clear to auscultation bilaterally, no coarseness crackles or wheezing, no cough present CHEST: Symmetrical movement, no accessory muscle use, good tidal volume. ABDOMEN: Soft, scaphoid, generalized abdominal tenderness, no organomegaly, no flank or suprapubic tenderness, active bowel tones. EXTREMITIES: moves all extremities, strength is 5/5 and symmetrical, no deformities or joint effusions. NEUROLOGIC: AAO x4, cranial nerves II-XII grossly intact, diminished sensation bilateral lower extremities, hearing grossly normal to speech. PSYCH: Good eye contact, linear thought process, cooperative, stable behavior. Objective Labs Result Diagrams: 02/20/20 15:34 02/20/20 15:34 Labs: Laboratory Results - last 24 hr 02/20/20 02/20/20 02/20/20 15:34 15:34 15:42 WBC 6.7 RBC 3.45 L Hgb 9.5 L Hct 28.4 L MCV 82.1 MCH 27.6 MCHC 33.6 RDW 14.0 Plt Count 283 Neut % (Auto) 64.0 Lymph % (Auto) 23.6 L [place] % (Auto) 6.0 Eos % (Auto) 5.6 H Baso % (Auto) 0.8 Neut # (Auto) 4300 Lymph # (Auto) 1600 [place] # (Auto) 400 Eos # (Auto) 400 Baso # (Auto) 100 Sodium 137 Potassium 4.3 Chloride 110 H Carbon Dioxide 26 BUN 32 H Creatinine 1.88 H Estimated GFR 42.3 L BUN/Creatinine Ratio 17.0 Glucose 103 H Calcium 8.3 L Total Bilirubin 0.6 AST 41 ALT 33 Alkaline Phosphatase 83 Total Creatine Kinase CK-MB (CK-2) CK-MB (CK-2) Rel Index Troponin I NT-Pro-B Natriuret Pep Total Protein 5.9 L Albumin 3.3 L Globulin 2.6 Albumin/Globulin Ratio 1.3 Lipase 60 Urine Color Yellow Urine Appearance Clear Urine pH 5.5 Ur Specific [place] 1.025 Urine Protein 3+ H Urine Glucose (UA) 1+ H Urine Ketones Negative Urine Occult Blood 3+ H Urine Nitrate Negative Urine Bilirubin Negative Urine Urobilinogen 0.2 Ur Leukocyte Esterase Negative Urine RBC 5-10/hpf H Urine WBC 0-1/hpf Ur Squamous Epith Cells 0-1 /hpf Amorphous Sediment 1+ Urine Bacteria None seen Hyaline Casts 1-5/lpf Ur Culture Indicated? Cult not indicated COVID-19 PCR 02/20/20 02/20/20 02/20/20 16:34 22:06 23:37 WBC RBC Hgb Hct MCV MCH MCHC RDW Plt Count Neut % (Auto) Lymph % (Auto) [place] % (Auto) Eos % (Auto) Baso % (Auto) Neut # (Auto) Lymph # (Auto) [place] # (Auto) Eos # (Auto) Baso # (Auto) Sodium Potassium Chloride Carbon Dioxide BUN Creatinine Estimated GFR BUN/Creatinine Ratio Glucose Calcium Total Bilirubin AST ALT Alkaline Phosphatase Total Creatine Kinase 296 H CK-MB (CK-2) 3.87 H CK-MB (CK-2) Rel Index 1.3 L Troponin I 0.023 NT-Pro-B Natriuret Pep 1010 H Total Protein Albumin Globulin Albumin/Globulin Ratio Lipase Urine Color Urine Appearance Urine pH Ur Specific [place] Urine Protein Urine Glucose (UA) Urine Ketones Urine Occult Blood Urine Nitrate Urine Bilirubin Urine Urobilinogen Ur Leukocyte Esterase Urine RBC Urine WBC Ur Squamous Epith Cells Amorphous Sediment Urine Bacteria Hyaline Casts Ur Culture Indicated? COVID-19 PCR Negative Assessment & Plan Assessment & Plan narrative: This is a 29-year-old male patient who presents to the ER with multiple symptoms including abdominal face in with nausea vomiting and diarrhea, hypertensive urgency and visual changes. 1. Abdominal pain, present on admission, active -CT of the abdomen pelvis is equivocal for appendicitis, Trace pelvic fluid, mild generalized pain on palpation. -patient is afebrile has a white count of 6.7 without shift however elevation of eosinophils at 5.6%. -diarrhea is described as watery without foul smell. Ordered GI panel. -will obtain procalcitonin. 2. Hypertensive urgency, present on admission, active -patient with elevated blood pressure on admission at 166/113 with a history of treatment failure with lisinopril resulting in hyperkalemia and amlodipine which was ineffective. -during the ER stay the blood pressure was up to 200/123. Requested the patient receive labetalol 10 mg IV in the emergency department for blood pressure over 180 and diastolic greater than 110 with improvement to 155/97. -patient has associated symptoms of headache and edema, elevated proBNP at 1010, troponin is 0.014 with an elevation in creatinine at 1.88. -ordered labetalol 10 mg IV every 4 hours as needed for sustained systolic blood pressure greater than 180 or diastolic blood sugars greater than 100. -ordered hydralazine 10 mg IV every 6 hours as needed for sustained systolic blood pressure greater than 180 or diastolic blood pressure greater than 100. -ordered losartan 25 mg x 1 now and will evaluate effect. 3. Type 1 diabetes with complications of neuropathy, retinopathy, nephropathy, chronic, stable -patient currently managed is glucose with an insulin pump and is followed by the [facility] endocrinology resident clinic. -patient with complications including autonomic neuropathy, neurogenic bladder, retinopathy with visual changes there reports of floaters. -will check fingerstick blood sugars every 6 hours while patient is NPO and patient may use his pump to manage glucose levels. -will obtain a hemoglobin A1c. 4. Anemia, normochromic normocytic, probable anemia of chronic disease. -hemoglobin is 9.5 and creatinine 28.6 with chronic diabetes and chronic kidney disease with a creatinine of 1.88. -will follow blood count. VTE: Bilateral SCDs, enoxaparin IV fluid: Lactated Ringer's at 50 cc/hour Diet: NPO Code status: Full code, patient designates his mother Jessica Warner to be his surrogate decision maker. The patient is admitted to the hospital due to severity of symptoms and need for ongoing monitoring and intervention to prevent adverse events or complications. The patient is admitted as observation with expected length of stay to be less than 2 midnights. COVID-19 COVID-19 status: Negative Result date/Date tested (Pos, Neg/Pending): 02/20/20 Scores GCS [place] coma scale eye opening: Spontaneous [place] coma scale verbal response: Orientated [place] coma scale motor response: Obey commands [place] coma scale total score: 15
[2020-02-21] MEDS: LACTATED RINGERS 1,000 ML 50 ML IV (04:33)
[2020-02-21] MEDS: LOSARTAN 25 MG TABLET PO (05:07)
[2020-02-21 06:15] LABS: Add Manual Diff / Slide Review NO; Basophils Absolute Auto 0 /uL (0-100); Basophils Percent Auto 0.7 % (0-2); Eosinophils Absolute Auto 300 /uL (0-450); Eosinophils Percent Auto 4.4 % (2-4); Hematocrit 23.7 % (41-53); Lymphocytes Absolute Auto 1300 /uL (1100-4500); Lymphocytes Percent Auto 20.2 % (25-40); Mean Corpuscular HGB Conc 33.7 % (30-36); Mean Corpuscular Hemoglobin 27.7 PG (26-34); Mean Corpuscular Volume 82.4 fL (80-100); Monocytes Absolute Auto 400 /uL (0-900); Monocytes Percent Auto 6.2 % (3-14); Neutrophils Absolute Auto 4300 /uL (1500-7000); Neutrophils Percent Auto 68.5 % (50-75); Platelet Count 239 X10^3/uL (150-400); Red Blood Cell Count 2.88 X10^6/uL (4.5-5.9); White Blood Cell Count 6.3 X10^3/uL (4.5-11.0)
[2020-02-21 06:43] LABS: BUN Creatinine Ratio 17.5 (6-22); Blood Urea Nitrogen 33 mg/dL (9-20); Calcium 8.2 mg/dL (8.4-10.2); Carbon Dioxide 26 mmol/L (22-32); Chloride 109 mmol/L (98-107); Estimated Glomerular Filt Rate 42.1 mL/min (>60); Glucose 127 mg/dL (70-100); HEMOLYSIS < 15 (0-50); Magnesium 1.8 mg/dL (1.6-2.3); Potassium 4.3 mmol/L (3.4-5.1); Sodium 135 mmol/L (137-145)
[2020-02-21 06:49] LABS: TSH w/ Reflex to FT4 2.52 uIU/mL (0.47-4.68)
[2020-02-21 06:59] LABS: Procalcitonin < 0.05 ng/mL (<0.5)
[2020-02-21] MEDS: ENOXAPARIN 40 MG/0.4 ML SYRINGE SUBCUT (08:50)
[2020-02-21] MEDS: PANTOPRAZOLE 40 MG VIAL IV (08:50)
--- NOTE | 2020-02-21 12:50 | CM.IDA ---
Initial DCP Assessment Note Patient is a 29 yo male, resident of [place]. Patient w/multiple medical complications, here under observation for hypertensive urgency and abd px c hx of DM1 c insulin pump (dx 2004, pump for 1y), retinopathy, neuropathy, nephropathy, c/o chronic diarrhea nausea vomiting. PCP: Does not have, no insurance Payer: Self Pay, sil application provided by admitting Reviewed chart, met w/patient this morning to introduce self as resource. Had lengthy conversation w/patient. Patient admits to overwhelming life circumstance at this time but doing the best I can. Patient currently living w/his mom with his 8 yo son. Patient had seen his son every other weekend until 2 years ago, when biological mom, whom son lived with, in a tragic murder in [place]. 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 Patient and son have had counseling throughout their lives, patient admits he has never found someone he trusts, this TUNGSTEN REFINER encouraged patient to keep trying. Patient admits he could use the help and has been struggling w/medical and emotional issues for a long time. Patient explains he has been laid off since July, has worked a one week job the entire summer, hopeful to get a second time worker position at [employer] that may begin in April. Patient makes approx $710 in weekly unemployment which disqualifies him for [employer] insurance, and paying out of pocket would cost approx. $1,500-$2,000 for he and his son- which he states he cannot afford. This TUNGSTEN REFINER offers listening support today; patient denies needs from this TUNGSTEN REFINER at this time and will plan to return home w/his family when medically cleared. Patient anticipates moving w/in a few months if he gets a job in [place], patient declined family resources and counseling resources at this time. Will follow closely in case any DC needs or concerns arise. CHRISTOPHER Shaw
--- NOTE | 2020-02-21 12:54 | DIET.PN ---
Addendum entered by Ana Amador 02/21/20 14:07: pt ate 100% lunch of: wild salmon, cooked carrots, banana, tony tea Original Note: Dietary Progress Note Assessment: 29y M admitted c hypertensive urgency and abd px c hx of DM1 c insulin pump (dx 2004, pump for 1y), retinopathy, neuropathy, nephropathy referred to nutrition for DM1 complications. Pt lost health insurance during covid. was scheduled for endoscopy/colonoscopy but was cancelled due to no coverage. Pt reports when he eats moderate to large portions of anything it goes right through him and is in food form in toilet. Pt has been following the AIP (autoimmune diet protocol) and is in the reintroduction phase. Pt feels current sx came on when he ate a fried egg on Monday, has since removed eggs from his diet. Pt reports losing 25# after implementing AIP and was down to 125# but has since gained back 20# as he is trying to incorporate more healthy fats into his diet like avocado and coconut oil. 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 Pts food avoidances are a large list including but not limited to: eggs, safflower oil, hops, shellfish, bread and grains, nuts and legumes, dairy, nightshade vegetables (tomatoes, potatoes, domínguez peppers, cucumbers), farm raised meats, sugar, artificial sugars, soy... Discussed pts dietary needs c hospitalist who agreed to forego clear liquid diet and instead follow transitional diet. Pt is able to tolerate: tony tea, wild salmon, cantaloupe, banana, cooked broccoli, cooked carrots, cooked zucchini. HT: 185.4cm WT: 61kg BMI: 17.7 Labs: A1c 7.0, hbg 8.0 L, Cr 1.89 H, eGFR 42.1 L, BNP 1010 H MNA: 11 at risk Hugo: 21 Nutrition Diagnosis: 1. poor nutrition quality of life r/t limited food acceptance aeb pt DM1 c insulin pump, pt has ongoing GI distress, DM1 complications, pt following restrictive AIP diet with little benefit seen thus far, significant weight loss and gain r/t restrictive diet. Interventions: 1. Discussed pts limited food choices at hospital so pt comfortable c what is being served to support POs for low BMI. Diet Order: transitional diet EER: 50g PRO (per renal) Monitoring/Evaluations: following closely
--- NOTE | 2020-02-21 14:42 | PC.NURSE ---
Day shift note: BP 181/112, HR 95 at 1330, sustained diastolic over 100, x 1 dose of 10 mg Labetolol admin IV as ordered. C/O headache, described as a generalize ache, extending from temporal to occipital region, 10/22. On re-check BP decreased to 169/105, states head ache improved. No nausea or vomiting, no visual changes. Tolerating PO intake. Notified Dr. Rizzo regarding BP, headache, and PRN Labetolol administration required. No further orders. Patient resting quietly in room, playing songs on his [employer].
[2020-02-21] MEDS: ACETAMINOPHEN 325 MG TABLET 650 MG PO (16:26)
[2020-02-21] MEDS: ONDANSETRON 4 MG/2 ML INJ IV (16:26)
[2020-02-21] MEDS: HYDRALAZINE 20 MG/ML VIAL 10 MG IV (19:31)
[2020-02-22] VITALS (17 sets, daily range): BP systolic 123–159; BP diastolic 66–109; PULSE 88–105; RESP 16–18; TEMP 36.8–37.5; O2SAT 96–99
[2020-02-22] MEDS: ACETAMINOPHEN 325 MG TABLET 650 MG PO (00:23)
[2020-02-22] MEDS: LACTATED RINGERS 1,000 ML 50 ML IV ×2 (00:34→19:54)
[2020-02-22] MEDS: ONDANSETRON 4 MG/2 ML INJ IV ×2 (00:34→06:11)
[2020-02-22] MEDS: OXYCODONE IR 5 MG TABLET PO (05:14)
[2020-02-22 05:50] LABS: Add Manual Diff / Slide Review NO; Basophils Absolute Auto 0 /uL (0-100); Basophils Percent Auto 0.6 % (0-2); Eosinophils Absolute Auto 200 /uL (0-450); Hematocrit 23.6 % (41-53); Hemoglobin 7.8 g/dL (13.5-17.5); Lymphocytes Absolute Auto 1600 /uL (1100-4500); Lymphocytes Percent Auto 27.3 % (25-40); Mean Corpuscular HGB Conc 33.2 % (30-36); Mean Corpuscular Hemoglobin 27.4 PG (26-34); Mean Corpuscular Volume 82.7 fL (80-100); Monocytes Absolute Auto 400 /uL (0-900); Monocytes Percent Auto 6.4 % (3-14); Neutrophils Absolute Auto 3600 /uL (1500-7000); Neutrophils Percent Auto 62.7 % (50-75); Platelet Count 237 X10^3/uL (150-400); Red Blood Cell Count 2.85 X10^6/uL (4.5-5.9); Red Cell Distribution Width 13.8 % (11.6-14.8); White Blood Cell Count 5.7 X10^3/uL (4.5-11.0)
[2020-02-22 05:58] LABS: BUN Creatinine Ratio 17.4 (6-22); Blood Urea Nitrogen 32 mg/dL (9-20); Carbon Dioxide 29 mmol/L (22-32); Chloride 106 mmol/L (98-107); Estimated Glomerular Filt Rate 43.4 mL/min (>60); Glucose 113 mg/dL (70-100); HEMOLYSIS < 15 (0-50); Potassium 4.2 mmol/L (3.4-5.1); Sodium 134 mmol/L (137-145)
[2020-02-22] MEDS: HYDRALAZINE 20 MG/ML VIAL 10 MG IV (06:10)
[2020-02-22] MEDS: PANTOPRAZOLE 40 MG VIAL IV (09:39)
[2020-02-22] MEDS: LOSARTAN 25 MG TABLET PO ×2 (09:39→21:17)
[2020-02-22] MEDS: ENOXAPARIN 40 MG/0.4 ML SYRINGE SUBCUT (09:39)
--- NOTE | 2020-02-22 11:12 | CM.DPC ---
DCP Cont: SW met bedside with pt and MD during MDR and pt's migraine has improved, currently no nausea, bp is stable and will see if pt can tolerate diet and add Reglan for medication to see if it helps with nausea. Pt had gastic emptying study a year ago and was negative but continues to have ongoing chronic nausea. Per MD, pt may be able to d/c today if he can tolerate diet. Pt hopeful for home today if he feels better and attempting food now. Plan: SW to follow for possible d/c home later today if tolerates diet and family to provide transport and pt to stay at his mom's at d/c for additional assist. CHRISTOPHER Abbasi
[2020-02-22] MEDS: METOCLOPRAMIDE 10 MG/2 ML INJ IV ×2 (11:38→19:54)
--- NOTE | 2020-02-22 11:47 | PM.PN.1 ---
Subjective Subjective Date Patient Seen: 02/22/20 Interval history: Patient admitted with nausea, vomiting, diarrhea, headache, and hypertensive urgency. His blood pressure has improved. He continues to have nausea and vomiting. The patient has a slight headache today. He reports he had a gastric emptying study about one year ago that was negative. He attempted breakfast but later had nausea and emesis Exam Vital Signs (past 8 hours): - 02/22/20 04:00 02/22/20 05:42 02/22/20 06:00 Temperature 98.6 F Pulse Rate 96 H 100 H Respiratory Rate 16 Blood Pressure 152/103 H 151/105 H Pulse Oximetry 99 02/22/20 06:10 02/22/20 07:04 02/22/20 08:00 Temperature 99.5 F Pulse Rate 100 H 88 105 H Respiratory Rate 16 Blood Pressure 151/105 H 135/70 125/66 Pulse Oximetry 98 02/22/20 10:00 Temperature Pulse Rate 104 H Respiratory Rate Blood Pressure 123/84 Pulse Oximetry Oxygen Delivery Method Room Air Oxygen Flow Rate 0 Narrative Exam Narrative: Pale ill appearing male Lungs: clear to auscultation CV: RRR nl Sl S2 Abd: soft/ non tender/ non distended, no right lower quadrant tenderness, no rebournd tenderness Ext: no edema Objective Labs Result Diagrams: 02/22/20 05:25 02/22/20 05:25 Labs: Laboratory Results - last 24 hr 02/22/20 02/22/20 05:25 05:25 WBC 5.7 RBC 2.85 L Hgb 7.8 L Hct 23.6 L MCV 82.7 MCH 27.4 MCHC 33.2 RDW 13.8 Plt Count 237 Neut % (Auto) 62.7 Lymph % (Auto) 27.3 [place] % (Auto) 6.4 Eos % (Auto) 3.0 Baso % (Auto) 0.6 Neut # (Auto) 3600 Lymph # (Auto) 1600 [place] # (Auto) 400 Eos # (Auto) 200 Baso # (Auto) 0 Sodium 134 L Potassium 4.2 Chloride 106 Carbon Dioxide 29 BUN 32 H Creatinine 1.84 H Estimated GFR 43.4 L BUN/Creatinine Ratio 17.4 Glucose 113 H Calcium 8.0 L Assessment & Plan Assessment & Plan narrative: 29 y/o male with Type 1 Diabetes admitted for -Hypertensive urgency -blood pressure improved today -no further malignant hypertension -will continue current medical regimen 2. Nausea/Emesis -suspect Diabetic gastroparesis ( despite reportedly negative gastric empyting study) -REglan prn, readvance diet as tolerated -continue tight glucose control 3. Type 1 Diabetes -continue current regimen -elevated blood sugars will exacerbate gastroparesis 4. Anemia suspect multifactoria likely ACD secondary to renal dysfunction 5. CKD-stage 3 avoid nephrotoxic agents continue iv hydration for now will follow labs closely Disposition: anticipate discharge home tomorrow Quality VTE Deep Vein Thrombosis/Pulmonary Embolism Present on Admission: No
--- NOTE | 2020-02-22 18:06 | PC.NURSE ---
1800 CBG checked and was 159. pt has implanted insulin pump and report administering 2 units prior to eating it's still infusing. per pt his insulin via pump is set to infuse slowly.
--- NOTE | 2020-02-22 20:57 | PC.NURSE ---
Pt had large BM, soft, brown and formed and with what looked like bits of undigested food. Sample sent to lab for GI panel.
[2020-02-22 23:15] LABS: Adenovirus F 40/41 Not Detected (Not Detect); Astrovirus Not Detected (Not Detect); Campylobacter Not Detected (Not Detect); Clostridium difficile toxin AB Not Detected (Not Detect); Cryptosporidium Not Detected (Not Detect); Cyclospora cayetanensis Not Detected (Not Detect); Entamoeba histolytica Not Detected (Not Detect); Enteroaggregative E.coli Not Detected (Not Detect); Enteropathogenic E.coli Not Detected (Not Detect); Enterotoxigenic E.coli It/st Not Detected (Not Detect); Giardia lamblia Not Detected (Not Detect); Norovirus GI/GII Not Detected (Not Detect); Plesiomonsa shigelloides Not Detected (Not Detect); Rotavirus A Not Detected (Not Detect); Salmonella Not Detected (Not Detect); Sapovirus Not Detected (Not Detect); Shiga-like toxin-prod E.coli Not Detected (Not Detect); Shigella/Enteroinvasive E.coli Not Detected (Not Detect); Vibrio Not Detected (Not Detect); Vibrio cholerae Not Detected (Not Detect); Yersinia enterocolitica Not Detected (Not Detect)
[2020-02-23] VITALS (10 sets, daily range): BP systolic 142–157; BP diastolic 87–108; PULSE 94–101; RESP 16–18; TEMP 36.8–37.3; O2SAT 98–99
[2020-02-23] MEDS: LABETALOL 20 MG/4 ML SYRINGE 10 MG IV (05:53)
[2020-02-23 05:56] LABS: Add Manual Diff / Slide Review NO; Basophils Absolute Auto 0 /uL (0-100); Basophils Percent Auto 0.6 % (0-2); Eosinophils Absolute Auto 200 /uL (0-450); Eosinophils Percent Auto 3.7 % (2-4); Hematocrit 23.8 % (41-53); Lymphocytes Absolute Auto 1700 /uL (1100-4500); Lymphocytes Percent Auto 26.6 % (25-40); Mean Corpuscular HGB Conc 33.7 % (30-36); Mean Corpuscular Hemoglobin 27.8 PG (26-34); Mean Corpuscular Volume 82.6 fL (80-100); Monocytes Absolute Auto 400 /uL (0-900); Neutrophils Absolute Auto 4100 /uL (1500-7000); Neutrophils Percent Auto 63.1 % (50-75); Platelet Count 232 X10^3/uL (150-400); Red Blood Cell Count 2.88 X10^6/uL (4.5-5.9); Red Cell Distribution Width 13.8 % (11.6-14.8); White Blood Cell Count 6.5 X10^3/uL (4.5-11.0)
[2020-02-23 06:11] LABS: Alanine Aminotransferase 21 IU/L (<50); Albumin 2.6 g/dL (3.5-5.0); Albumin Globulin Ratio 1.1 (1.0-2.8); Alkaline Phosphatase 65 U/L (38-126); Aspartate Aminotransferase 32 IU/L (17-59); BUN Creatinine Ratio 17.5 (6-22); Bilirubin Total 0.4 mg/dL (0.2-1.3); Blood Urea Nitrogen 35 mg/dL (9-20); Calcium 8.1 mg/dL (8.4-10.2); Carbon Dioxide 27 mmol/L (22-32); Chloride 106 mmol/L (98-107); Estimated Glomerular Filt Rate 39.4 mL/min (>60); Globulin 2.3 g/dL (1.7-4.1); Glucose 138 mg/dL (70-100); HEMOLYSIS < 15 (0-50); Potassium 5.1 mmol/L (3.4-5.1); Sodium 133 mmol/L (137-145); Total Protein 4.9 g/dL (6.3-8.2)
--- NOTE | 2020-02-23 08:29 | P.DS_ITS ---
History of Present Illness History of Present Illness Date Patient Seen: 02/23/20 Chief complaint: vomiting,diarrhea, nausea Narrative: Mr. Benita Warner is a 29-year-old male with history significant for type 1 diabetes, neuropathy, retinopathy and nephropathy complications, neurogenic bladder and hypertension who presents to the emergency department for nausea vomiting and diarrhea. Patient states he has had nausea vomiting with right lower quadrant abdominal pain for 4 days that has waxed and waned improving yesterday after which he 8 and became sick again with nausea v omiting. The patient further states that he developed watery diarrhea night before last with multiple episodes of bile like watery stool today prompting him to present to the emergency department. Patient is a type 1 diabetic managed on an insulin pump for he receives his insulin from the [facility] endocrine resident clinic. Patient provides a convoluted history of recurrent episodes leg arm of facial swelling a few days ago having episode worse than ever that has since resolved. He describes visual changes for the last 2 weeks. He has previously been evaluated for neurogenic bladder and nephropathy undergoing a renal ultrasound on 09/19/2019 which shows minimal right kidney pelvocalcentesis and a normal left kidney with no evidence of hydronephrosis. The patient reports episodes of chills but denies fevers. He has had headaches city so she [place] with high blood pressure but no nasal congestion or sore throat. He denies chest pain but has had occasional palpitations. He reports no shortness of breath cough for wheezing. He has had abdominal pain, nausea, vomiting and diarrhea as noted above. Patient denies urinary symptoms and describes having a big bladder. 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 Upon arrival to the ER the patient is afebrile with a temperature 97.8?, tachycardic at 1:07 a.m. with a blood pressure 166/113 with respirations of 19 and saturation 99% on room air. While in the ER the patient had elevated blood pressure was up to 200/123. Chest x-ray finds no acute cardiopulmonary processes. He had a CT of the abdomen and pelvis is equivocal for appendicitis without full visualization, trace pelvic fluid, mild diffuse thickening of the urinary bladder. Twelve lead EKG shows a sinus rhythm ventricular rate of 95 without ectopy block or infarct. On laboratory analysis the patient has white count of 6.7 with elevated eosinophils at 5.6%. His hemoglobin is 9.5 with hematocrit of 28.6 and a platelets of 283. His electrolytes are within normal limits and has a BUN of 32 and a creatinine of 1.88. His nonfasting glucose is 103. His liver functions are all within normal limits. He has a total CK of 296, CK-MB of 3.87 with an index of 1.3%. His troponin is 0.023. His elevated proBNP at 1010. On urinalysis he has 3+ protein and 3+ blood but is negative for nitrites leukocyte esterase or WBCs. While in the ER the patient received 1 L of fluid resulting in elevation blood pressure following which he cut 20 of Lasix. Patient also had 1 in of nitropaste applied and requested labetalol 10 mg IV. The patient is admitted to the hospitalist service for hypertensive urgency and abdominal pain. Discharge Providers Provider Date of admission: 02/21/20 02:21 Discharge Date: 02/23/20 Consults: 02/21/20 03:34 Consult to Discharge Planning Routine Comment: 02/21/20 03:35 Consult to Dietitian, Adult Routine Comment: Reason For Exam: Type 1 diabetic with complications Discharge provider: No Monroy MD Summary Hospital Course Discharge Diagnosis: 1. Nausea and vomiting likely diabetic gastroparesis 2. Type 1 diabetes 3. Malignant hypertension improved 4. Chronic kidney disease stage 3 5. Migraine headache 6. Severe protein calorie malnutrition 7. Anemia, suspect anemia of chronic disease Hospital Course: Patient was admitted to the hospital with nausea vomiting and diarrhea. His diarrhea improved. He continued to have nausea and had emesis as well. The patient passed on digested food yesterday. However his nausea resolved. The patient was able to advance his diet and tolerated without further nausea and vomiting over the past 24 hours. He was placed on losartan for hypertension. His blood pressure improved significantly. The patient was deemed appropriate for discharge and arrangements were made to discharge him home. Of note the patient does not have prescriptions were his blood pressure medications which will be initiated now. In addition he was scheduled for e ndoscopy colonoscopy which GI previously and will follow-up with the clinic at [facility] for repeat evaluation by gastroenterology. He has made significant improvement has no abdominal, fever, white count and is tolerating his meals well. He will be discharged home today. Status at Discharge Cognitive/behavioral status at discharge: oriented Functional status at discharge: independent ambulation Overall status at discharge: patient is back to baseline Time Spent with Patient Time spent: Less than 30 minutes Exam Vital Signs (past 8 hours): - 02/23/20 01:13 02/23/20 05:40 02/23/20 05:42 Temperature 98.2 F Pulse Rate 100 H Respiratory Rate 16 Blood Pressure 153/108 H Pulse Oximetry 99 99 98 02/23/20 05:53 02/23/20 06:31 02/23/20 06:50 Temperature Pulse Rate 100 H 94 H 94 H Respiratory Rate Blood Pressure 153/108 H 142/87 H 142/87 H Pulse Oximetry Oxygen Delivery Method Room Air Oxygen Flow Rate 0 Narrative Exam Narrative: Pleasant gentleman resting comfortably in no obvious distress Lungs: Clear to auscultation Cardiac exam: Regular rate and rhythm normal S1 and Abdomen: Soft and nontender Extremities: No edema Objective Labs Result Diagrams: 02/23/20 05:25 02/23/20 05:25 Labs: Laboratory Results - last 24 hr 02/22/20 02/23/20 02/23/20 20:45 05:25 05:25 WBC 6.5 RBC 2.88 L Hgb 8.0 L Hct 23.8 L MCV 82.6 MCH 27.8 MCHC 33.7 RDW 13.8 Plt Count 232 Neut % (Auto) 63.1 Lymph % (Auto) 26.6 [place] % (Auto) 6.0 Eos % (Auto) 3.7 Baso % (Auto) 0.6 Neut # (Auto) 4100 Lymph # (Auto) 1700 [place] # (Auto) 400 Eos # (Auto) 200 Baso # (Auto) 0 Sodium 133 L Potassium 5.1 Chloride 106 Carbon Dioxide 27 BUN 35 H Creatinine 2.00 H Estimated GFR 39.4 L BUN/Creatinine Ratio 17.5 Glucose 138 H Calcium 8.1 L Total Bilirubin 0.4 AST 32 ALT 21 Alkaline Phosphatase 65 Total Protein 4.9 L Albumin 2.6 L Globulin 2.3 Albumin/Globulin Ratio 1.1 Stl C. cayetanensis PCR Not detected Stool Rotavirus (PCR) Not detected Stool Adenovirus (PCR) Not detected Stool Astrovirus (PCR) Not detected Stool Cryptosporidium PCR Not detected Stl E.coli Shiga Tox PCR Not detected St Sh/Enteroin Ecoli PCR Not detected Stool E coli O157 PCR Not Reportable Stl Enterotoxigenic E PCR Not detected Stool EPEC (PCR) Not detected Stl E. histolytica PCR Not detected Stool Giardia Lamblia PCR Not detected Stool Sapovirus (PCR) Not detected Stl P. shigelloides PCR Not detected St Y.enterocolitica PCR Not detected Stool Vibrio (PCR) Not detected Stl Vibrio cholerae PCR Not detected Stl Enteroaggr Ecoli PCR Not detected Stl Norovirus GI/GII PCR Not detected Campylobacter (PCR) Not detected C. difficile Tox (PCR) Not detected Salmonella (PCR) Not detected Discharge Assessment & Plan Assessment and Plan Assessment: 1. Nausea and vomiting, resolved, suspect diabetic gastroparesis 2. Type 1 diabetes 3. Hypertension 4. Chronic kidney disease, stage III 5. Migraine headache Plan of Treatment: Discharge home Prescriptions written for blood pressure medication Patient to follow-up with his primary care physician at [facility] Patient to follow-up with gastroenterology for upper endoscopy and colonoscopy as previously scheduled Discharge Plan Discharge Plan Patient Disposition: Home Discharge orders & Medications Prescriptions: New losartan 25 mg Tablet 25 mg PO BID Qty: 30 RF: 0 Continued insulin aspart U-100 [Novolog U-100 Insulin aspart] 100 unit/mL Solution 1 unit continuous IV infusion CONT RF: 0 Follow up/Referrals: [facility] [Outside] Discharge Health Status Multidrug resistant organism: No MDRO Diet/Activity/Treatments Diet: Diet as Tolerated and Carb-consistent/Diabetic Activity: as tolerated Skin/Wound/Dressing Care Report to your healthcare provider any signs of infection, such as:: increased pain Visit Report/Discharge Packet Instructions: DI for Dehydration -- Adult, DI for High Blood Pressure, Nausea and Vomiting-Adult Visit Report Forms: Patient Portal/API, Stroke Signs & Symptoms Discharge Data Attending Provider: Brody Hernandez Admit Date/Time: 02/21/20 02:21 Quality VTE Deep Vein Thrombosis/Pulmonary Embolism Present on Admission: No
[2020-02-23] MEDS: LOSARTAN 25 MG TABLET PO (09:03)
[2020-02-23] MEDS: ENOXAPARIN 40 MG/0.4 ML SYRINGE SUBCUT (09:04)
--- NOTE | 2020-02-23 10:48 | PC.NURSE ---
Patient educated about new medications for discharge, diet, High blood pressure, exercise, dehydration, and when to follow up with his primary care doctor. Patient verbalized understanding to all discharge instructions. Patient left w/ all belongings and walked to car w/ mom by his side to bring him home in a private vehicle.
--- NOTE | 2020-02-23 12:10 | CM.DPC ---
DCP Discharge Home Per MD, pt has been able to tolerate his diet without further N/V and bp improved and stable for d/c home today with close follow up with his PCP. Per MD, requesting confirmation of why pt did not take his previously prescribed bp medication and confirm he is established with PCP. SW and RN met bedside with pt and his mom and pt states he did not refill his bp med amlodipine prior to admission as it did not seem to be working, almost made me feel worse. Pt is agreeable with taking it after d/c in combination with losartan to see if that helps manage his bp better. Pt states that he has remained established with Dr. Fisher at [facility] even without insurance and Dr. Fisher continues to prescribe for him and pt is aware of the [facility] as well in case needed. Pt denies any concern for financially affording his medications or filling them at the pharmacy as he uses [facility] and states it makes his meds very affordable. Pt and mother have no concerns or questions at this time and agreeable to d/c home today. Plan: Patient to d/c home today via mother POV and outpt follow up. No further SW needs at this time. Lizette Loera, SAS PROGRAMMER ANALYST
[2020-02-24 14:46] LABS: Deamidated Gliadin Ab IgA 3 units (0-19); Deamidated Gliadin Ab IgG 1 units (0-19); Immunoglobulin A,Qn 195 mg/dL (90-386); t-Transglutaminase IgA <2 U/mL (0-3)
== END 2020-02-23 10:52 | disposition home or self-care (01) | DRG 74 ==
LOC: ED 02-21 02:19 → AC 02-21 10:56
PROVIDERS: Internal Medicine; Student in an Organized Health Care Education/Training Program; Admitting Provider Nurse Practitioner Adult Health; Emergency Provider Emergency Medicine; Referring Provider Emergency Medicine; Visit Provider Nurse Practitioner Adult Health
DX: E10.43 Type 1 diabetes mellitus with diabetic autonomic (poly)neuropathy (principal); E10.22 Type 1 diabetes mellitus with diabetic chronic kidney disease; D63.8 Anemia in other chronic diseases classified elsewhere; I16.0 Hypertensive urgency; I12.9 Hypertensive chronic kidney disease with stage 1 through stage 4 chronic kidney disease, or unspecified chronic kidney disease; K31.84 Gastroparesis; N18.30 Chronic kidney disease, stage 3 unspecified; E10.319 Type 1 diabetes mellitus with unspecified diabetic retinopathy without macular edema; G43.909 Migraine, unspecified, not intractable, without status migrainosus
CPT/HCPCS: 36415; 71045; 74177; 80048; 80053; 81001; 82550; 82553; 82784; 82962; 83036; 83516; 83690; 83735; 83880; 84145; 84443; 84484; 85025; 87086; 87507; 87635; 93005; 96361; 96374; 96375; 99284; 99406; G0378; C9113; J0360; J1650; J1940; J2405; J2765; Q9967